=== PATIENT | female | born 1970 | race African-American/Black ===

== ENCOUNTER 2017-12-02 21:07 | Emergency (ER) | payer BC ==
--- NOTE | 2017-12-02 21:36 | PDOC ---
Rapid Medical Evaluation Time Seen by Provider: 12/02/17 21:29 Medical Evaluation: 12/02/17 21:30 I have performed a brief in-person evaluation of the patient. The patient presents with a chief complaint of : abdominal and back pain since this evening Also reports nausea, and chills. Denies diarrhea or constipation. Pertinent physical exam findings. unlabored breathing heart s1s2 abs: + tenderness in right lower abdomen I have ordered the following urinalysis, labs This patient will proceed to the ED for further evaluation. Discharge Disposition - Referrals Referrals: Ruben Farfan MD [Primary Care Provider] - - Patient Instructions - Post Discharge Activity
[2017-12-02 21:40] VITALS: BP 139/67; PULSE 92; TEMP 98.2; BMI 31.4
[2017-12-02 22:10] LABS: BASO % 1.1 % (0-2.0); EOS % 1.7 % (0-4.5); HEMATOCRIT 41.2 % (32.4-45.2); HEMOGLOBIN 13.9 GM/dL (10.7-15.3); LYMPH % 31.5 % (8-40); MCH 30.4 pg (25.7-33.7); MCHC 33.6 g/dl (32.0-36.0); MEAN CELL VOLUME 90.5 fl (80-96); MEAN PLT VOLUME 7.7 fl (7.5-11.1); MONO % 6.9 % (3.8-10.2); NEUT % 58.8 % (42.8-82.8); PLATELET COUNT 413 K/MM3 (134-434); RBC 4.55 M/mm3 (3.60-5.2); RDW 13.1 % (11.6-15.6)
[2017-12-02 22:21] LABS: URINE APPEARANCE CLEAR; URINE BILIRUBIN NEGATIVE (<2.0 mg/dL); URINE COLOR STRAW; URINE GLUCOSE (UA) NEGATIVE (NEGATIVE); URINE KETONE NEGATIVE (NEGATIVE); URINE LEUK ESTERASE NEGATIVE (NEGATIVE); URINE NITRITE NEGATIVE (NEGATIVE); URINE PROTEIN NEGATIVE (NEGATIVE); URINE UROBILINOGEN NEGATIVE mg/dL (0.2-1.0)
[2017-12-02] MEDS ORDERED: morphine CARPU-JECT 4 MG/1 ML DISP.SYRIN IVPUSH ONE (22:23)
[2017-12-02] MEDS ORDERED: ONDANSETRON 4 MG/2 ML VIAL IVPUSH ONE (22:23)
[2017-12-02] MEDS ORDERED: SODIUM CHLORIDE 1,000 ML IV STA (22:23)
--- NOTE | 2017-12-02 22:23 | PDOC ---
History of Present Illness - General History Source: Patient Exam Limitations: No Limitations - History of Present Illness Initial Comments: 12/02/17 22:32 The patient is a 47 year old female with past medical history of HTN and Anemia presents to the emergency department with right lower quadrant pain. The patient reports the pain is localized to the right lower quadrant and states the pain is similar to previous incidents when she ruptured a cyst. The patient states the last incident was Aug 2017. The patient denies taking any medication for the pain. Denies fever, chills, cough or headache. Denies chest pain, sob or wheezing. Denies nausea or vomiting. Denies dysuria, hematuria, frequency or urgency to urinate. Denies vaginal bleeding or discharge. Allergies: hydrocodone, oxycodone, tetracycline, and metoclopramide [From [employer] ] Social history: None reported Surgical history: Partial hysterectomy (September 2016), Lap band 2009, lap band removal 2013, GI sleeve and Cholecystectomy. PCP: Ruben Farfan MD <Dianne Comer - Last Filed: 12/02/17 22:32> <Julianna Del Rio - Last Filed: 12/03/17 00:47> - General Chief Complaint: Pain Stated Complaint: ABD PAIN Time Seen by Provider: 12/02/17 21:29 Past History <Dianne Comer - Last Filed: 12/02/17 22:32> - Past Medical History Anemia: Yes COPD: No HTN: Yes - Surgical History Cholecystectomy: Yes GI Surgery: Yes (Lap band 2009, lap band removal 2013, GI sleeve) - Reproductive History Is Patient Now?: No - Suicide/Smoking/Psychosocial Hx Smoking History: Never smoked Have you smoked in the past 12 months: No Information on smoking cessation initiated: No Hx Alcohol Use: No Drug/Substance Use Hx: No Substance Use Type: None <Julianna Del Rio - Last Filed: 12/03/17 00:47> - Past Medical History Allergies/Adverse Reactions: Allergies Allergy/AdvReac Type Severity Reaction Status Date / Time hydrocodone Allergy Intermediate Vomiting Verified 12/02/17 21:32 oxycodone Allergy Intermediate Vomiting Verified 12/02/17 21:32 tetracycline Allergy Mild Rash Verified 12/02/17 21:32 metoclopramide [From [facility]] AdvReac Mild Verified 12/02/17 21:32 Review of Systems - Review of Systems Able to Perform ROS?: Yes Comments:: 12/02/17 22:33 GENERAL/CONSTITUTIONAL: No fever or chills. No weakness. HEAD, EYES, EARS, NOSE AND THROAT: No change in vision. No ear pain or discharge. No sore throat. CARDIOVASCULAR: No chest pain or shortness of breath. RESPIRATORY: No cough, wheezing, or hemoptysis. GASTROINTESTINAL:(+) Right lower quadrant pain. No nausea, vomiting, diarrhea or constipation. GENITOURINARY: No dysuria, frequency, or change in urination. MUSCULOSKELETAL: No joint or muscle swelling or pain. No neck or back pain. SKIN: No rash NEUROLOGIC: No headache, vertigo, loss of consciousness, or change in strength/ sensation. ENDOCRINE: No increased thirst. No abnormal weight change. HEMATOLOGIC/LYMPHATIC: No anemia, easy bleeding, or history of blood clots. ALLERGIC/IMMUNOLOGIC: No hives or skin allergy. <Dianne Comer - Last Filed: 12/02/17 22:32> *Physical Exam - Vital Signs Last Vital Signs Temp Pulse Resp BP Pulse Ox 98.2 F 92 H 18 139/67 100 12/02/17 21:32 12/02/17 21:32 12/02/17 21:32 12/02/17 21:32 12/02/17 21:32 <Dianne Comer - Last Filed: 12/02/17 22:32> - Vital Signs Last Vital Signs Temp Pulse Resp BP Pulse Ox 98.2 F 92 H 18 139/67 100 12/02/17 21:32 12/02/17 21:32 12/02/17 21:32 12/02/17 21:32 12/02/17 21:32 - Physical Exam Comments: GENERAL: Awake, alert, and fully oriented. Appears uncomfortable. Tearful on interview. HEAD: No signs of trauma EYES: PERRLA, EOMI, sclera anicteric, conjunctiva clear ENT: Auricles normal inspection, hearing grossly normal, nares patent, oropharynx clear without exudates. Moist mucosa NECK: Normal ROM, supple, no lymphadenopathy, JVD, or masses LUNGS: Breath sounds equal, clear to auscultation bilaterally. No wheezes, and no crackles HEART: Regular rate and rhythm, normal S1 and S2, no murmurs, rubs or gallops ABDOMEN: Soft, +RLQ tenderness, normoactive bowel sounds. +Guarding, no rebound. No masses EXTREMITIES: Normal range of motion, no edema. No clubbing or cyanosis. No cords, erythema, or tenderness NEUROLOGICAL: Cranial nerves II through XII grossly intact. Normal speech, normal gait SKIN: Warm, Dry, normal turgor, no rashes or lesions noted. <Julianna Del Rio - Last Filed: 12/03/17 00:47> ED Treatment Course - LABORATORY CBC & Chemistry Diagram: 12/02/17 21:58 12/02/17 21:58 - ADDITIONAL ORDERS Additional order review: 12/02/17 21:58 RBC 4.55 MCV 90.5 MCHC 33.6 RDW 13.1 MPV 7.7 Neutrophils % 58.8 Lymphocytes % 31.5 Monocytes % 6.9 Eosinophils % 1.7 Basophils % 1.1 <Dianne Comer - Last Filed: 12/02/17 22:32> - LABORATORY CBC & Chemistry Diagram: 12/02/17 21:58 12/02/17 21:58 - ADDITIONAL ORDERS Additional order review: 12/02/17 21:58 RBC 4.55 MCV 90.5 MCHC 33.6 RDW 13.1 MPV 7.7 Neutrophils % 58.8 Lymphocytes % 31.5 Monocytes % 6.9 Eosinophils % 1.7 Basophils % 1.1 <Julianna Del Rio - Last Filed: 12/03/17 00:47> Medical Decision Making - Medical Decision Making 12/03/17 00:46 Pt reassessed. She reports her pain is significantly improved, she is comfortable with going home. Sono prelim read shows 3.4 cm ovarian cyst, no signs of torsion. Stable for DC. <Julianna Del Rio - Last Filed: 12/03/17 00:47> *DC/Admit/Observation/Transfer - Attestations Scribe Attestion: 12/02/17 22:33 Documentation prepared by Dianne Comer, acting as medical doctor for Julianna Del Rio MD. <Dianne Comer - Last Filed: 12/02/17 22:32> - Discharge Dispostion Decision to Admit order: No <Julianna Del Rio - Last Filed: 12/03/17 00:47> Diagnosis at time of Disposition: Ovarian cyst Qualifiers: Laterality: right Qualified Code(s): N83.201 - Unspecified ovarian cyst, right side - Discharge Dispostion Disposition: HOME Condition at time of disposition: Improved - Referrals Referrals: Ruben Farfan MD [Primary Care Provider] - - Patient Instructions - Post Discharge Activity
[2017-12-02 22:37] LABS: EPI CELLS RARE /HPF (FEW); URINE BACTERIA RARE /hpf (NONE SEEN)
[2017-12-02] MEDS ORDERED: MORPHINE SULFATE 10 MG/1 ML *VIAL ONE (22:37)
[2017-12-02] MEDS ORDERED: ONDANSETRON 4 MG/2 ML VIAL ONE (22:37)
[2017-12-02 22:46] LABS: INR 1.02 (0.82-1.09); PROTHROMBIN TIME (PATIENT) 11.5 SEC (9.7-13.0)
[2017-12-02 22:49] LABS: ACTIVATED PTT 34.4 SECONDS (26.9-34.4); ALBUMIN 4.3 g/dl (3.4-5.0); ANION GAP 7 (8-16); BILIRUBIN,TOTAL 0.4 mg/dL (0.2-1.0); BLOOD UREA NITROGEN 11 mg/dL (7-18); CALCIUM 9.4 mg/dL (8.5-10.1); CHLORIDE 103 mmol/L (98-107); CO2 29 mmol/L (21-32); CREATININE 0.8 mg/dL (0.55-1.02); GLUCOSE,RANDOM 105 mg/dL (74-106); POTASSIUM 3.3 mmol/L (3.5-5.1); SGOT/AST 13 U/L (15-37); SGPT/ALT 17 U/L (12-78); SODIUM 139 mmol/L (136-145); TOT PROT 7.4 g/dl (6.4-8.2)
[2017-12-02 22:50] LABS: ALK PHOS 92 U/L (45-117)
== END 2017-12-03 01:35 | disposition home or self-care (01) ==
LOC: JER 21:07
PROC: 3E033NZ Introduction of Analgesics, Hypnotics, Sedatives into Peripheral Vein, Percutaneous Approach (ICD-10-PCS; principal; 2017-12-02)
PROC: 3E033GC Introduction of Other Therapeutic Substance into Peripheral Vein, Percutaneous Approach (ICD-10-PCS; 2017-12-02)
DX: N83.201 Unspecified ovarian cyst, right side (principal)
CPT/HCPCS: 36415; 76830-TC; 80053; 81003; 81015; 85025; 85610; 85730; 87086; 99283-25; J7030